=== PATIENT | female | born 2000 | race African-American/Black ===

== ENCOUNTER 2021-12-11 13:50 | Emergency (ER) | payer BC ==
[2021-12-11 15:23] LABS: SARS-CoV-2 NAA Rapid Test Not Detected (NotDetected)
[2021-12-11] MEDS ORDERED: HYDROmorphone 0.5 MG/0.5 ML SYRINGE ONE (15:36)
[2021-12-11] MEDS ORDERED: PROPOFOL 20 ML ONE (15:37)
[2021-12-11] MEDS ORDERED: Lidocaine 2% MPF 10 ML AMP (For Epidural Use) ONE (15:38)
[2021-12-11] MEDS ORDERED: Succinylcholine 200 MG/10 ml SYRINGE FS ONE (15:39)
[2021-12-11] MEDS ORDERED: Midazolam HCl 2 mg/2 ml Vial ONE (15:39)
[2021-12-11] MEDS ORDERED: Dexamethasone 4 mg/ml Vial ONE (15:51)
[2021-12-11] MEDS ORDERED: Ondansetron PF 4 MG/2 ML Vial ONE (15:51)
[2021-12-11] MEDS ORDERED: Acetaminophen 500 MG TAB ONE (17:44)
== END 2021-12-11 15:27 | disposition admitted as inpatient to this hospital (09) ==
LOC: CSHERS 13:50
DX: Z03.821 Encounter for observation for suspected ingested foreign body ruled out (principal); Z20.822 Contact with and (suspected) exposure to COVID-19
CPT/HCPCS: 71250; J1100; J1170; J2250; J2405; J2704; U0002